=== PATIENT | male | born 1985 | race Two or more races ===

== ENCOUNTER 2022-08-25 19:41 | Emergency (ER) | payer OTHER ==
[~2022-08-25] VITALS: Ht 180.3 cm; Wt 100.0 kg
[2022-08-25] MEDS ORDERED: CAPT25TA3 PO (19:46)
[2022-08-25] MEDS ORDERED: IBUPROFEN 600 MG TABLET PO ONE (21:15)
[2022-08-25] MEDS ORDERED: ACETAMINOPHEN 500 MG TABLET PO ONE (21:15)
[2022-08-25] MEDS ORDERED: CEPH-558 PO (22:02)
[2022-08-25 22:21] VITALS: BP 159/64
== END 2022-08-25 22:23 | disposition home or self-care (01) ==
LOC: EMS 19:47
DX: S61.532A Puncture wound without foreign body of left wrist, initial encounter (principal); I10 Essential (primary) hypertension; X58.XXXA Exposure to other specified factors, initial encounter; Y93.89 Activity, other specified; Y92.89 Other specified places as the place of occurrence of the external cause; Y99.8 Other external cause status
CPT/HCPCS: 99283